=== PATIENT | male | born 1960 | race Caucasian/White ===

== ENCOUNTER 2024-02-14 09:32 | Inpatient (IN) | payer OTHER ==
[~2024-02-14] VITALS: Ht 170.2 cm; Wt 72.7 kg
[2024-02-14] MEDS ORDERED: BUDE0.5S6 PO (09:49)
[2024-02-14] MEDS ORDERED: LEVO1TAB39 PO (09:49)
[2024-02-14] MEDS ORDERED: PRED10TA2 PO (09:49)
[2024-02-14] MEDS ORDERED: FLUT1BLS8 INH (09:51)
[2024-02-14] MEDS ORDERED: ALBU8.5H PO (09:51)
[2024-02-14 10:31] LABS: VENOUS HCO3 27.2 MMOL/L (23.0-27.0); VENOUS O2 SATURATION 91.8 % (60.0-80.0); VENOUS PARTIAL PRESSURE CO2 44.2 mmHg (38.0-50.0); VENOUS PARTIAL PRESSURE O2 59.5 mmHg (30.0-50.0); VENOUS PH 7.407 UNITS (7.330-7.430); VENOUS TOTAL CO2 28.6 MMOL/L (24.0-28.0)
[2024-02-14 10:42] LABS: BASO % 0.4 % (0.0-1.0); EOS # 0.1 10^3/uL (0.0-0.5); EOS % 0.5 % (0.0-3.0); HEMATOCRIT 47.9 % (42.0-52.0); HEMOGLOBIN 16.4 g/dl (13.5-17.5); LYMPH # 0.6 10^3/uL (1.5-5.0); LYMPH % 5.3 % (24.0-44.0); MEAN CORPUSCULAR HEMOGLOBIN 30.4 pg (27.0-33.0); MEAN CORPUSCULAR HGB CONC 34.2 g/dl (32.0-36.5); MEAN CORPUSCULAR VOLUME 88.7 fl (80.0-96.0); MONO # 0.8 10^3/uL (0.0-0.8); MONO % 7.2 % (2.0-8.0); NEUTROPHILS # 9.1 10^3/uL (1.5-8.5); NEUTROPHILS % 86.2 % (36.0-66.0); PLATELET COUNT, AUTOMATED 378 10^3/uL (150-450); WHITE BLOOD COUNT 10.5 10^3/uL (4.0-10.0)
[2024-02-14 11:04] LABS: ALBUMIN 3.8 G/DL (3.2-5.2); ALKALINE PHOSPHATASE 78 U/L (46-116); ALT/SGPT 16 U/L (7.0-40); AST/SGOT 22 U/L (<34); BILIRUBIN,DIRECT 0.2 MG/DL (<0.4); BILIRUBIN,TOTAL 0.8 MG/DL (0.3-1.2); BLOOD UREA NITROGEN 13 MG/DL (9-23); CARBON DIOXIDE LEVEL 27 MMOL/L (20-31); CHLORIDE LEVEL 99 MMOL/L (98-107); CREATININE FOR GFR 0.78 MG/DL (0.70-1.30); GLOMERULAR FILTRATION RATE > 60.0 (>49); GLUCOSE, FASTING 126 MG/DL (74-106); POTASSIUM SERUM 4.2 MMOL/L (3.5-5.1); SODIUM LEVEL 134 MMOL/L (136-145); TOTAL PROTEIN 6.6 G/DL (5.7-8.2)
[2024-02-14] MEDS ORDERED: ISOVUE-370 76% 100ML VIAL As Ordered ONE (11:24)
[2024-02-14] MEDS: OSELTAMIVIR PHOSPHATE 75 MG CAP (TAMIFLU) PO ONE (12:44)
[2024-02-14] MEDS ORDERED: IPRATROPIUM 0.5MG/ALBUTEROL 2.5MG INH SOL UD 3ML (DUONEB) NEB PRN (13:30)
[2024-02-14] MEDS ORDERED: MED REC IN PROGRESS XX SCH (14:40)
[2024-02-14 15:22] LABS: PROCALCITONIN 0.05 ng/ml
[2024-02-14] MEDS ORDERED: NICOTINE POLACRILEX 2 MG GUM PO PRN (15:25)
[2024-02-14] MEDS ORDERED: NICO2GUM41 PO (15:28)
[2024-02-14] MEDS ORDERED: HOME MED LIST COMPLETE! XX SCH (15:35)
[2024-02-14] MEDS: LEVALBUTEROL 1.25MG 0.5ML CONCENTRATE NEB NEB ONE ×2 (15:49→15:50)
[2024-02-14 15:54] LABS: CK-MB VALUE MASS 5.7 NG/ML (<3.6)
[2024-02-14 15:58] LABS: CPK CREATINE PHOSPHOKINASE 160 U/L (46-171); MB/CK RELATIVE INDEX 3.56 (< OR =4)
[2024-02-14] MEDS ORDERED: IPRATROPIUM 0.5MG/ALBUTEROL 2.5MG INH SOL UD 3ML (DUONEB) NEB SCH (16:00)
[2024-02-14] MEDS: ALPRAZolam 0.25 MG TAB PO ONE (16:46)
[2024-02-14] MEDS: OMEPRAZOLE 20MG CAP PO SCH (16:46)
[2024-02-14] MEDS: DOXYCYCLINE HYCLATE 100MG TABLET PO ONE (16:46)
[2024-02-14] MEDS: cefTRIAXone SOD 2 GM in D5W MINI-BAG PLUS 50 ML IV SCH (16:47)
[2024-02-14] MEDS: NS 1,000 ML IV ONE (16:47)
[2024-02-14] MEDS: methylPREDNISolone 125MG 2ML VIAL IV ONE (16:50)
[2024-02-14] MEDS: ENOXAPARIN 40MG/0.4ML SYRINGE (J1650 PER 10MG) SC ONE (16:51)
[2024-02-14] MEDS: cloNIDine 0.1MG TABLET PO ONE (16:52)
[2024-02-14] MEDS: NITROGLYCERIN 2% OINT 1 GM *U/D* PKT TOP ONE (17:15)
[2024-02-14 17:35] VITALS: BP 140/88; TEMP 97.3; O2SAT 94
[2024-02-14] MEDS: NICOTINE 21MG/24HR 1 EA TRANSDERMAL TD SCH (17:51)
[2024-02-14] MEDS: lisinopriL 5 MG TAB PO ONE (17:52)
[2024-02-14] MEDS: NICOTINE POLACRILEX 2 MG GUM PO ONE (17:52)
[2024-02-14] MEDS: IPRATROPIUM 0.02% SOLN 0.5MG 2.5ML NEB INH SCH (19:01)
[2024-02-14] MEDS: FLUTICASONE HFA 220 MCG 12 GM INHALER (FLOVENT) INH SCH (19:01)
[2024-02-14] MEDS: LEVALBUTEROL 1.25MG 0.5ML CONCENTRATE NEB INH SCH (19:01)
[2024-02-14] MEDS: OSELTAMIVIR PHOSPHATE 75 MG CAP (TAMIFLU) PO SCH (20:24)
[2024-02-14] MEDS: lisinopriL 5 MG TAB PO SCH (20:25)
[2024-02-14] MEDS: DOXYCYCLINE HYCLATE 100MG TABLET PO SCH (20:25)
[2024-02-14] MEDS: methylPREDNISolone 125MG 2ML VIAL IV SCH (20:26)
[2024-02-14] MEDS ORDERED: ENTER DRUG NAME HERE (PATIENT'S OWN MED) INH SCH (21:00)
[2024-02-15 02:06] VITALS: BP_SYST 166; BP_SYST 171; BP_DIAS 102; BP_DIAS 107; TEMP 97.8; O2SAT 90
[2024-02-15] MEDS: cloNIDine 0.1MG TABLET PO PRN (02:47)
[2024-02-15 05:30] VITALS: BP 134/91; TEMP 98.8; O2SAT 94
[2024-02-15 06:13] LABS: BASO % 0.1 % (0.0-1.0); EOS % 0.2 % (0.0-3.0); HEMATOCRIT 47.9 % (42.0-52.0); HEMOGLOBIN 16.5 g/dl (13.5-17.5); LYMPH # 0.7 10^3/uL (1.5-5.0); LYMPH % 7.9 % (24.0-44.0); MEAN CORPUSCULAR HEMOGLOBIN 30.4 pg (27.0-33.0); MEAN CORPUSCULAR HGB CONC 34.4 g/dl (32.0-36.5); MEAN CORPUSCULAR VOLUME 88.4 fl (80.0-96.0); MONO # 0.5 10^3/uL (0.0-0.8); MONO % 5.5 % (2.0-8.0); NEUTROPHILS # 7.8 10^3/uL (1.5-8.5); NEUTROPHILS % 85.9 % (36.0-66.0); PLATELET COUNT, AUTOMATED 352 10^3/uL (150-450); RED BLOOD COUNT 5.42 10^6/uL (4.30-6.10); WHITE BLOOD COUNT 9.1 10^3/uL (4.0-10.0)
[2024-02-15 06:52] LABS: BLOOD UREA NITROGEN 20 MG/DL (9-23); CALCIUM LEVEL 8.7 MG/DL (8.3-10.6); CARBON DIOXIDE LEVEL 26 MMOL/L (20-31); CHLORIDE LEVEL 103 MMOL/L (98-107); CREATININE FOR GFR 0.61 MG/DL (0.70-1.30); GLOMERULAR FILTRATION RATE > 60.0 (>49); GLUCOSE, FASTING 149 MG/DL (74-106); POTASSIUM SERUM 4.4 MMOL/L (3.5-5.1); SODIUM LEVEL 136 MMOL/L (136-145)
[2024-02-15] MEDS: TIOTROPIUM INHALER/CAPSULE (SPIRIVA) INH SCH (08:05)
[2024-02-15] MEDS: ENOXAPARIN 40MG/0.4ML SYRINGE (J1650 PER 10MG) SC SCH (08:32)
[2024-02-15] MEDS: LEVALBUTEROL 1.25MG 0.5ML CONCENTRATE NEB INH PRN (09:49)
[2024-02-15] MEDS: BUDESONIDE 0.5 MG/2 ML INHALATION SUSPENSION PO PRN (09:49)
[2024-02-15] MEDS: IPRATROPIUM 0.02% SOLN 0.5MG 2.5ML NEB INH PRN (09:49)
[2024-02-15 14:00] VITALS: BP 131/74; TEMP 99; O2SAT 92
[2024-02-15 20:00] VITALS: BP 120/83; TEMP 97.3; O2SAT 97
[2024-02-16 06:00] VITALS: BP 129/85; TEMP 98.6; O2SAT 91
[2024-02-16 06:45] LABS: BASO % 0.1 % (0.0-1.0); EOS % 0.2 % (0.0-3.0); HEMATOCRIT 46.6 % (42.0-52.0); HEMOGLOBIN 15.9 g/dl (13.5-17.5); LYMPH # 0.7 10^3/uL (1.5-5.0); LYMPH % 4.3 % (24.0-44.0); MEAN CORPUSCULAR HEMOGLOBIN 30.8 pg (27.0-33.0); MEAN CORPUSCULAR HGB CONC 34.1 g/dl (32.0-36.5); MEAN CORPUSCULAR VOLUME 90.1 fl (80.0-96.0); MONO # 0.6 10^3/uL (0.0-0.8); MONO % 3.6 % (2.0-8.0); NEUTROPHILS # 15.4 10^3/uL (1.5-8.5); NEUTROPHILS % 91.2 % (36.0-66.0); PLATELET COUNT, AUTOMATED 356 10^3/uL (150-450); RED BLOOD COUNT 5.17 10^6/uL (4.30-6.10); WHITE BLOOD COUNT 16.9 10^3/uL (4.0-10.0)
[2024-02-16 07:00] VITALS: O2SAT 91
[2024-02-16 07:17] LABS: BLOOD UREA NITROGEN 30 MG/DL (9-23); CALCIUM LEVEL 8.5 MG/DL (8.3-10.6); CARBON DIOXIDE LEVEL 28 MMOL/L (20-31); CHLORIDE LEVEL 99 MMOL/L (98-107); CREATININE FOR GFR 0.65 MG/DL (0.70-1.30); GLOMERULAR FILTRATION RATE > 60.0 (>49); GLUCOSE, FASTING 122 MG/DL (74-106); POTASSIUM SERUM 4.2 MMOL/L (3.5-5.1); SODIUM LEVEL 135 MMOL/L (136-145)
[2024-02-16 10:20] LABS: CK-MB VALUE MASS 12.2 NG/ML (<3.6)
[2024-02-16 10:48] LABS: CPK CREATINE PHOSPHOKINASE 287 U/L (46-171); MB/CK RELATIVE INDEX 4.25 (< OR =4)
[2024-02-16 14:00] VITALS: BP 156/86; TEMP 98.5; O2SAT 90
[2024-02-16] MEDS ORDERED: DOXY100T PO (20:47)
[2024-02-16] MEDS ORDERED: PROB250C PO (20:47)
[2024-02-16] MEDS ORDERED: OSEL75CA2 PO (20:47)
[2024-02-16] MEDS ORDERED: PRED20TA PO (20:47)
[2024-02-16] MEDS: methylPREDNISolone 125MG 2ML VIAL IV SCH (20:54)
[2024-02-16 21:00] VITALS: BP 136/80; TEMP 98.1; O2SAT 90
[2024-02-17 05:04] VITALS: BP 128/64; TEMP 97.3; O2SAT 90
[2024-02-17 06:30] LABS: BASO % 0.1 % (0.0-1.0); EOS % 0.1 % (0.0-3.0); HEMATOCRIT 51.5 % (42.0-52.0); HEMOGLOBIN 17.5 g/dl (13.5-17.5); LYMPH % 6.2 % (24.0-44.0); MEAN CORPUSCULAR HEMOGLOBIN 30.2 pg (27.0-33.0); MEAN CORPUSCULAR VOLUME 88.9 fl (80.0-96.0); MONO # 1.1 10^3/uL (0.0-0.8); MONO % 6.9 % (2.0-8.0); NEUTROPHILS # 13.8 10^3/uL (1.5-8.5); PLATELET COUNT, AUTOMATED 355 10^3/uL (150-450); RED BLOOD COUNT 5.79 10^6/uL (4.30-6.10)
[2024-02-17 06:51] LABS: BLOOD UREA NITROGEN 26 MG/DL (9-23); CALCIUM LEVEL 8.8 MG/DL (8.3-10.6); CARBON DIOXIDE LEVEL 31 MMOL/L (20-31); CHLORIDE LEVEL 100 MMOL/L (98-107); CREATININE FOR GFR 0.59 MG/DL (0.70-1.30); GLOMERULAR FILTRATION RATE > 60.0 (>49); GLUCOSE, FASTING 109 MG/DL (74-106); POTASSIUM SERUM 4.3 MMOL/L (3.5-5.1); SODIUM LEVEL 136 MMOL/L (136-145)
[2024-02-17 09:21] VITALS: BP 144/92
== END 2024-02-17 12:37 | disposition home or self-care (01) | DRG 871 ==
LOC: M ED 09:32 → EDBD 09:32 → M ED INP 13:56 → EDBEDREQ 14:03 → M MSPAV 17:25
PROVIDERS: ADMIT General Practice; ATTEND Internal Medicine
DX: A41.9 Sepsis, unspecified organism (principal); J96.01 Acute respiratory failure with hypoxia; J44.1 Chronic obstructive pulmonary disease with (acute) exacerbation; F17.200 Nicotine dependence, unspecified, uncomplicated; I10 Essential (primary) hypertension; J10.1 Influenza due to other identified influenza virus with other respiratory manifestations; Z79.52 Long term (current) use of systemic steroids; Z79.899 Other long term (current) drug therapy

== ENCOUNTER 2025-09-10 08:56 | Inpatient (IN) | payer OTHER ==
[~2025-09-10] VITALS: Ht 162.6 cm; Wt 66.6 kg
[~2025-09-10 08:56] MED LIST: ALBU8.5H PO; BUDE0.5S6 PO; DOXY100T PO; FLUT1BLS8 INH; LEVO1TAB39 PO; NICO2GUM41 PO; OSEL75CA2 PO; PRED10TA2 PO; PRED20TA PO; PROB250C PO
[2025-09-10 09:25] LABS: VENOUS BASE EXCESS 4.0 (-2.0-2.0); VENOUS HCO3 30.9 MMOL/L (23.0-27.0); VENOUS O2 SATURATION 60.2 % (60.0-80.0); VENOUS PARTIAL PRESSURE CO2 53.9 mmHg (38.0-50.0); VENOUS PARTIAL PRESSURE O2 31.6 mmHg (30.0-50.0); VENOUS PH 7.376 UNITS (7.330-7.430); VENOUS STANDARD HCO3 26.8 MMOL/L; VENOUS TOTAL CO2 32.5 MMOL/L (24.0-28.0)
[2025-09-10 09:28] LABS: BASO # 0.1 10^3/uL (0.0-0.2); BASO % 0.4 % (0.0-1.0); EOS # 0.0 10^3/uL (0.0-0.5); EOS % 0.1 % (0.0-3.0); LYMPH # 1.4 10^3/uL (1.5-5.0); LYMPH % 7.9 % (24.0-44.0); MONO # 1.1 10^3/uL (0.0-0.8); MONO % 6.2 % (2.0-8.0); NEUTROPHILS # 15.0 10^3/uL (1.5-8.5); NEUTROPHILS % 85.1 % (36.0-66.0); PLATELET COUNT, AUTOMATED 380 10^3/uL (150-450)
[2025-09-10] MEDS: IPRATROPIUM 0.5 MG/ALBUTEROL 2.5 MG INH SOL UD 3 ML NEB PRN ×2 (09:33→15:40)
[2025-09-10 09:54] LABS: ALT/SGPT 21 U/L (7.0-40); AST/SGOT 25 U/L (<34); CALCIUM LEVEL 9.8 MG/DL (8.3-10.6); CARBON DIOXIDE LEVEL 32 MMOL/L (20-31); CHLORIDE LEVEL 103 MMOL/L (98-107); CREATININE FOR GFR 0.60 MG/DL (0.70-1.30); GLOMERULAR FILTRATION RATE > 90.0 (>49); POTASSIUM SERUM 3.6 MMOL/L (3.5-5.1); SODIUM LEVEL 143 MMOL/L (136-145)
[2025-09-10] MEDS ORDERED: AMLO1TAB24 PO (11:25)
[2025-09-10] MEDS ORDERED: PRED5TA PO (11:25)
[2025-09-10] MEDS ORDERED: HOME MED LIST COMPLETE! XX SCH (11:25)
[2025-09-10] MEDS ORDERED: ALBU2.5V10 INH (11:25)
[2025-09-10] MEDS ORDERED: ATOR1TAB19 PO (11:25)
[2025-09-10] MEDS ORDERED: MONT10TA97 PO (11:25)
[2025-09-10] MEDS ORDERED: BUSP5TA PO (11:25)
[2025-09-10] MEDS ORDERED: DALI1TAB2 PO (11:25)
[2025-09-10] MEDS ORDERED: LEVO25TA5 PO (11:25)
[2025-09-10] MEDS: BUDESONIDE 0.5 MG/2 ML INHALATION SUSPENSION NEB SCH (12:35)
[2025-09-10] MEDS: GLYCOPYRROLATE INJ 0.2 MG/ML 2 ML VIAL NEB SCH (12:35)
[2025-09-10] MEDS: PANTOPRAZOLE 40MG TAB PO SCH (12:40)
[2025-09-10] MEDS: AZITHROMYCIN 250 MG TABLET PO SCH (12:40)
[2025-09-10] MEDS: amLODIPine 5 MG TAB PO SCH (12:41)
[2025-09-10] MEDS ORDERED: ISOVUE-370 76% 100 ML VIAL As Ordered ONE (12:49)
[2025-09-10 13:02] LABS: MAGNESIUM LEVEL 2.0 MG/DL (1.8-2.4)
[2025-09-10 14:30] VITALS: BP 131/90; TEMP 97.5; O2SAT 95
[2025-09-10 16:03] VITALS: BP 120/76; TEMP 98.7; O2SAT 96
[2025-09-10] MEDS: guaiFENesin DM *SUGAR FREE* 5 ML ORALSYRG PO SCH (17:07)
[2025-09-10 19:47] VITALS: BP 117/84; TEMP 97.5; O2SAT 98
[2025-09-10] MEDS: MONTELUKAST 10 MG TAB PO SCH (20:59)
[2025-09-10] MEDS: busPIRone 5 MG TAB PO SCH (20:59)
[2025-09-10] MEDS: ATORVASTATIN 10 MG TAB PO SCH (20:59)
[2025-09-10] MEDS: ENOXAPARIN 40 MG/0.4 ML SYRINGE (J1650 PER 10MG) SC SCH (20:59)
[2025-09-10 23:47] VITALS: BP 127/79; TEMP 98.7; O2SAT 94
[2025-09-11] VITALS (21 sets, daily range): BP systolic 127–149; BP diastolic 80–89; TEMP 97.6–99; O2SAT 90–100
[2025-09-11] MEDS: LEVOTHYROXINE 25 MCG TABLET (0.025MG) PO SCH (05:52)
[2025-09-11 06:22] LABS: CALCIUM LEVEL 9.7 MG/DL (8.3-10.6); CARBON DIOXIDE LEVEL 30 MMOL/L (20-31); CHLORIDE LEVEL 102 MMOL/L (98-107); CREATININE FOR GFR 0.58 MG/DL (0.70-1.30); GLOMERULAR FILTRATION RATE > 90.0 (>49); MAGNESIUM LEVEL 2.1 MG/DL (1.8-2.4); POTASSIUM SERUM 4.4 MMOL/L (3.5-5.1); SODIUM LEVEL 141 MMOL/L (136-145)
[2025-09-11] MEDS: ACETAMINOPHEN 325 MG TAB PO PRN (15:26)
[2025-09-11] MEDS: ALPRAZolam 0.5 MG TAB PO ONE (17:52)
[2025-09-11] MEDS: IPRATROPIUM 0.5 MG/ALBUTEROL 2.5 MG INH SOL UD 3 ML NEB SCH (19:32)
[2025-09-11] MEDS: busPIRone 5 MG TAB PO SCH (21:24)
[2025-09-12] VITALS (33 sets, daily range): BP systolic 113–147; BP diastolic 69–86; TEMP 97.1–98.1; O2SAT 85–97
[2025-09-12 04:06] LABS: PLATELET COUNT, AUTOMATED 372 10^3/uL (150-450)
[2025-09-12] MEDS: ALPRAZolam 0.5 MG TAB PO PRN (04:18)
[2025-09-12 04:55] LABS: CALCIUM LEVEL 9.4 MG/DL (8.3-10.6); CARBON DIOXIDE LEVEL 33 MMOL/L (20-31); CHLORIDE LEVEL 101 MMOL/L (98-107); CREATININE FOR GFR 0.64 MG/DL (0.70-1.30); GLOMERULAR FILTRATION RATE > 90.0 (>49); MAGNESIUM LEVEL 2.3 MG/DL (1.8-2.4); POTASSIUM SERUM 4.6 MMOL/L (3.5-5.1); SODIUM LEVEL 142 MMOL/L (136-145)
[2025-09-12] MEDS: TRELEGY ELLIPTA INH SCH (08:00)
[2025-09-12] MEDS ORDERED: IPRATROPIUM 0.5 MG/ALBUTEROL 2.5 MG INH SOL UD 3 ML NEB PRN (10:55)
[2025-09-12] MEDS: IPRATROPIUM 0.5 MG/ALBUTEROL 2.5 MG INH SOL UD 3 ML NEB SCH (15:17)
[2025-09-12] MEDS: ROFLUMILAST 500 MCG PO SCH (16:10)
[2025-09-13] VITALS (29 sets, daily range): BP systolic 125–153; BP diastolic 77–87; TEMP 97.4–98; O2SAT 88–95
[2025-09-13 05:45] LABS: CALCIUM LEVEL 9.1 MG/DL (8.3-10.6); CARBON DIOXIDE LEVEL 34 MMOL/L (20-31); CHLORIDE LEVEL 101 MMOL/L (98-107); CREATININE FOR GFR 0.58 MG/DL (0.70-1.30); GLOMERULAR FILTRATION RATE > 90.0 (>49); MAGNESIUM LEVEL 2.2 MG/DL (1.8-2.4); POTASSIUM SERUM 4.5 MMOL/L (3.5-5.1); SODIUM LEVEL 140 MMOL/L (136-145)
[2025-09-13] MEDS: predniSONE 20 MG TAB PO SCH (08:51)
[2025-09-14] VITALS (14 sets, daily range): BP systolic 133–156; BP diastolic 81–92; TEMP 95.1–98.7; O2SAT 85–92
[2025-09-14 05:46] LABS: BASO # 0.0 10^3/uL (0.0-0.2); BASO % 0.1 % (0.0-1.0); EOS # 0.0 10^3/uL (0.0-0.5); EOS % 0.1 % (0.0-3.0); LYMPH # 4.3 10^3/uL (1.5-5.0); LYMPH % 28.5 % (24.0-44.0); MONO # 1.7 10^3/uL (0.0-0.8); MONO % 11.3 % (2.0-8.0); NEUTROPHILS # 9.1 10^3/uL (1.5-8.5); NEUTROPHILS % 59.7 % (36.0-66.0); PLATELET COUNT, AUTOMATED 333 10^3/uL (150-450)
[2025-09-14 06:19] LABS: CALCIUM LEVEL 8.7 MG/DL (8.3-10.6); CARBON DIOXIDE LEVEL 34 MMOL/L (20-31); CHLORIDE LEVEL 98 MMOL/L (98-107); CREATININE FOR GFR 0.60 MG/DL (0.70-1.30); GLOMERULAR FILTRATION RATE > 90.0 (>49); MAGNESIUM LEVEL 2.0 MG/DL (1.8-2.4); POTASSIUM SERUM 3.8 MMOL/L (3.5-5.1); SODIUM LEVEL 140 MMOL/L (136-145)
[2025-09-14] MEDS ORDERED: PRED10TA2 PO ×2 (10:37→12:39)
[2025-09-14] MEDS ORDERED: XANA0.5T PO (14:17)
== END 2025-09-14 14:20 | disposition home or self-care (01) | DRG 192 ==
LOC: M ED 08:56 → M ED INP 12:07 → M PCU 14:26
PROVIDERS: ADMIT Student in an Organized Health Care Education/Training Program; ATTEND Student in an Organized Health Care Education/Training Program
DX: J44.1 Chronic obstructive pulmonary disease with (acute) exacerbation (principal); B34.8 Other viral infections of unspecified site; I10 Essential (primary) hypertension; E03.9 Hypothyroidism, unspecified; F41.9 Anxiety disorder, unspecified; F17.210 Nicotine dependence, cigarettes, uncomplicated; Z71.6 Tobacco abuse counseling; Z79.890 Hormone replacement therapy; Z79.52 Long term (current) use of systemic steroids; Z79.899 Other long term (current) drug therapy